=== PATIENT | male | born 1950 | race Caucasian/White ===

== ENCOUNTER 2016-10-03 07:22 | Day surgery (SDC) | payer MEDICARE, BC ==
--- NOTE | 2016-10-03 07:39 | OR ---
Anesthesia Pre Procedure Eval Pre Procedure Evaluation: Last Vital Signs Temp 36.5 C 08/28/16 11:55 Pulse Resp BP 138/87 08/28/16 12:25 Pulse Ox PRE PROCEDURE EVALUATION:: DATE: 10/03/2016 TIME: 09 16 INDICATIONS: Multilevel cervical bulging discs. Bilateral pruritus in arms. PAST MEDICAL HISTORY: Patient has had cervical epidural steroid injections for this in the past. Last one was done in August of this year. That injection did not give the patient any relief from his symptoms. The previous injection did relieve symptoms for several months. EXAM: Lungs clear and equal. Heart rate regular. Patient complains of above symptoms. ASSESSMENT OF MEDICAL STATUS: Procedure risks and benefits were explained to and accepted by the patient. No contraindication to cervical epidural steroid injection. PLANNED PROCEDURE : Fluoroscopy-guided epidural steroid injection at C7-T1 Home Medications: HOME MEDICATIONS Levothyroxine Sodium [Levoxyl] 200 mcg PO DAILY 02/06/16 [Last Taken Unknown] Omeprazole 40 mg PO DAILY 02/06/16 [Last Taken Unknown] Tamsulosin HCl [Flomax] 0.4 mg PO DAILY 02/06/16 [Last Taken Unknown]
[2016-10-03] MEDS ORDERED: IOPAMIDOL 20 ML VIAL IJ ONE (08:03)
[2016-10-03] MEDS ORDERED: LIDOCAINE HCL/PF 5 ML VIAL IJ ONE (08:05)
[2016-10-03] MEDS ORDERED: DEXAMETHASONE SOD PHOSPHATE 10 MG/ML VIAL IJ ONE (08:05)
--- NOTE | 2016-10-03 08:20 | OR ---
Anesthesia Procedure Note - Anesthesia Procedure Note Narrative: Vital Signs - Last Taken Temp 36.4 C L 10/03/16 07:32 Pulse 60 10/03/16 08:06 Resp 16 10/03/16 08:06 BP 133/87 10/03/16 08:06 Pulse Ox 95 10/03/16 08:06 O2 Oxygen Delivery Method Room Air 10/03/16 08:16 ANESTHESIA PROCEDURE NOTE Date of procedure: 10/03/2016. Time of procedure: 804 Performed by: Anton Hammonds CRNA Flexographic Press Set Up Operator: Maryjo Martinez RN . Preprocedure diagnosis: Multilevel cervical bulging disc with radiculopathy and bilateral pruritus and shoulders and arms.. Post procedure diagnosis: Same. Procedure: Fluoroscopy guided cervical epidural steroid injection Indications: Cervical radiculopathy. Bilateral pruritus and shoulders and arms. Findings: Patient brought up room form placed in a prone position. The back of his neck was prepped with DuraPrep. Epidural space was identified at C67 under fluoroscopy guidance and [id number] technique. A total of 1.5 mL of Isovue-200 was injected to confirm needle placement. 10 mg of dexamethasone preservative-free and 5 mL of 1% Xylocaine preservative-free was injected into the epidural space. Epidural needle was removed intact and a Band-Aid was applied to the puncture site. EBL: Minimal. Fluids: N/A. Specimen: N/A. Post procedure condition: The patient tolerated the procedure well. No complications were noted. Thank you for this consultation Anton Hammonds CRNA
[2016-10-03 08:49] VITALS: BP 120/69
== END 2016-10-03 07:23 | disposition home or self-care (01) ==
LOC: AMB 07:22
PROVIDERS: ATTEND Physician Assistant
PROC: 3E0S3BZ Introduction of Anesthetic Agent into Epidural Space, Percutaneous Approach (ICD-10-PCS; 2016-10-03)
PROC: 3E0S33Z Introduction of Anti-inflammatory into Epidural Space, Percutaneous Approach (ICD-10-PCS; principal; 2016-10-03 08:00)
DX: M50.10 Cervical disc disorder with radiculopathy, unspecified cervical region (principal); L29.8 Other pruritus